=== PATIENT | female | born 1985 | race Caucasian/White ===

== ENCOUNTER 2018-01-11 19:37 | Emergency (ER) | payer OTHER ==
[2018-01-11] MEDS ORDERED: PROMETHAZINE HCL 25 MG/ML INJ IVP ONE (19:49)
[2018-01-11] MEDS ORDERED: NS 1,000 ML IV ONE ×2 (19:49)
--- NOTE | 2018-01-11 19:49 | EDPHY ---
H & P Stated Complaint: N/V, x2 days Time Seen by Provider: 01/11/18 19:46 HPI/ROS: HPI: This is a 32-year-old female who presents with Chief Complaint: Nausea, vomiting x2 days Location: GI Quality: Nausea, vomiting Duration: 2 days Signs and Symptoms: no fever, + nausea, + vomiting, no hematemesis, no blood in stool, no abdominal bloating, no diarrhea, no back pain, no urinary symptoms, no vaginal bleeding/discharge, no indigestion, no chest pain, no shortness of breath Timing: Acute, intermittent episodes Severity: Moderate Context: Patient presents with sudden onset approximately 48 hr ago of nausea and vomiting 10-20 times per day of her stomach contents and bile at this point. Patient reports that the evening before the symptoms started she and her 8 homeless that was bad. Her started to feel nauseous but has not had the severity of symptoms that the patient has. She denies any foreign travel, recent antibiotics use. She reports that she took Zofran with minimal relief of her symptoms. She denies any abdominal pain, pelvic pain. She has no fevers, diarrhea, back pain, urinary symptoms. She has an IUD does not regularly get her menses. Denies marijuana use. Took 12 mg Zofran and Benadryl 50 mg today with minimal relief. Modifying Factors: Zofran and Benadryl with no relief Comment: ROS: A comprehensive 10 system review of systems is otherwise negative aside from elements mentioned in the history of present illness. 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 . Nonsmoker. Family history noncontributory. CONSTITUTIONAL: Nontoxic-appearing adult white female, awake and alert, no obvious distress HEENT: Atraumatic and normocephalic, PERRL, EOMI. Nares patent; no rhinorrhea; no nasal mucosal edema. Tympanic membranes clear. Oropharynx clear, no exudate and moist pink mucosa. Airway patent. No lymphadenopathy. No meningismus. Cardiovascular: Normal S1/S2, regular rate, regular rhythm, without murmur rub or gallop. PULMONARY/CHEST: Symmetrical and nontender. Clear to auscultation bilaterally. Good air movement. No accessory muscle usage. ABDOMEN: Soft, nondistended, nontender, no rebound, no guarding, no peritoneal signs, no masses or organomegaly. No CVAT. EXTREMITIES: 2/2 pulses, strength 5/5, no deformities, no clubbing, no cyanosis or edema. NEUROLOGICAL: no focal neuro deficits. GCS 15. SKIN: Warm and dry, no erythema. no rash. Good capillary refill. Source: Patient Exam Limitations: No limitations - Personal History Current Tetanus/Diphtheria Vaccine: No Current Tetanus Diphtheria and Acellular Pertussis (TDAP): No - Medical/Surgical History Hx Asthma: Yes Hx Chronic Respiratory Disease: No Hx Diabetes: No Hx Cardiac Disease: No Hx Renal Disease: No Hx Cirrhosis: No Hx Alcoholism: No Hx HIV/AIDS: No Hx Splenectomy or Spleen Trauma: No Other PMH: bleeding ovarian cyst sx, hip dysplasia - Social History Smoking Status: Never smoked Constitutional: Initial Vital Signs Temperature (C) 36.7 C 01/11/18 19:39 Heart Rate 78 01/11/18 19:39 Respiratory Rate 20 01/11/18 19:39 Blood Pressure 116/62 01/11/18 19:39 O2 Sat (%) 97 01/11/18 19:39 O2 Delivery Mode Room Air Allergies/Adverse Reactions: No Known Allergies Allergy (Unverified 01/11/18 19:38) Home Medications: Medication Instructions Recorded Promethazine HCl 25 mg PO Q6 PRN #12 tablet 01/11/18 Medical Decision Making ED Course/Re-evaluation: Vital signs reviewed and stable upon arrival. No systemic signs. IV access and laboratory studies ordered Abdomen is soft and nontender. Doubt surgical process. Imaging not indicated. No urinary symptoms and patient politely declined urinalysis which I feel is reasonable. Given 2 L normal saline and IV promethazine 12.5 mg upon arrival 2020: Labs reviewed. No signs of leukocytosis/anemia/platelet dysfunction/TITUS/ elevated LFTs/electrolyte imbalance/pancreatitis/. 2100: Reassessed patient who reports that she feels sleepy but still complains of nausea. IV Reglan given. Polite declines IV Benadryl as she already feels sleepy. I offered her pain medication she politely declined this. I do not believe the ultrasound is warranted for right upper quadrant pain at this time due to normal LFTs. 2199: Reassessed patient who reports she still has mild nausea. IV Benadryl given. 2220: To room by patient who advises that she feels comfortable being discharged home. Prepack for Phenergan and prescription for same given per request. She advises that she has an appointment with her primary care provider tomorrow already scheduled. This patient was seen under the supervision of my secondary supervising physician. I evaluated care for this patient independently. Discussed this patient with Dr. Engel. Differential Diagnosis: Abdominal pain including but not limited to appendicitis, cholecystitis, gastritis and urinary tract infection. - Data Points Laboratory Results: Laboratory Results 01/11/18 20:05 01/11/18 20:05 01/11/18 01/11/18 01/11/18 20:05 20:05 20:05 WBC 4.29 10^3/uL 10^3/uL (3.80-9.50) RBC 4.72 10^6/uL 10^6/uL (4.18-5.33) Hgb 13.3 g/dL g/dL (12.6-16.3) Hct 38.8 % % (38.0-47.0) MCV 82.2 fL fL (81.5-99.8) MCH 28.2 pg pg (27.9-34.1) MCHC 34.3 g/dL g/dL (32.4-36.7) RDW 13.0 % % (11.5-15.2) Plt Count 233 10^3/uL 10^3/uL (150-400) MPV 9.7 fL fL (8.7-11.7) Neut % (Auto) Not Reported Lymph % (Auto) Not Reported [place] % (Auto) Not Reported Eos % (Auto) Not Reported Baso % (Auto) Not Reported Nucleat RBC Rel Count Not Reported Absolute Neuts (auto) Not Reported Absolute Lymphs (auto) Not Reported Absolute Monos (auto) Not Reported Absolute Eos (auto) Not Reported Absolute Basos (auto) Not Reported Absolute Nucleated RBC Not Reported Immature Gran % Not Reported Seg Neutrophils % 83.0 % % Band Neutrophils % 0.0 % % Lymphocytes % 10.0 % % Monocytes % 6.0 % % Eosinophils % 1.0 % % Basophils % 0.0 % % Metamyelocytes % 0.0 % % Myelocytes % 0.0 % % Promyelocytes % 0.0 % % Blast Cells % 0.0 % % Immature Gran # Not Reported Absolute Seg Neuts 3.56 10^3/uL 10^3/uL (1.70-6.50) Absolute Band Neuts 0.00 10^3/uL 10^3/uL (0.00-0.70) Absolute Lymphocytes 0.43 10^3/uL L 10^3/uL (1.00-3.00) Absolute Monocytes 0.26 10^3/uL L 10^3/uL (0.30-0.80) Absolute Eosinophils 0.04 10^3/uL 10^3/uL (0.03-0.40) Absolute Basophils 0.00 10^3/uL L 10^3/uL (0.02-0.10) Absolute Metamyelocyte 0.00 10^3/mL 10^3/mL (0.00-0.00) Absolute Myelocytes 0.00 10^3/mL 10^3/mL (0.00-0.00) Absolute Promyelocytes 0.00 10^3/uL 10^3/uL (0.00-0.00) Absolute Plasma Cells 0.00 10^3/uL 10^3/uL (0.00-0.00) Nucleated RBCs 2.0 /100 WBC H /100 WBC (0-0) Absolute Blast Cells 0.00 10^3/uL 10^3/uL (0.00-0.00) Plasma Cells % 0.0 % % Platelet Estimate TNP Sodium 137 mEq/L mEq/L (135-145) Potassium 3.5 mEq/L mEq/L (3.3-5.0) Chloride 104 mEq/L mEq/L (97-110) Carbon Dioxide 24 mEq/l mEq/l (22-31) Anion Gap 9 mEq/L mEq/L (6-14) BUN 13 mg/dL mg/dL (7-23) Creatinine 0.7 mg/dL mg/dL (0.6-1.0) Estimated GFR > 60 Glucose 112 mg/dL H mg/dL (70-100) Calcium 9.0 mg/dL mg/dL (8.5-10.4) Total Bilirubin 0.5 mg/dL mg/dL (0.1-1.4) Conjugated Bilirubin 0.0 mg/dL mg/dL (0.0-0.5) Unconjugated Bilirubin 0.5 mg/dL mg/dL (0.0-1.1) AST 42 IU/L IU/L (14-46) ALT 33 IU/L IU/L (9-52) Alkaline Phosphatase 52 IU/L IU/L (38-126) Total Protein 6.9 g/dL g/dL (6.3-8.2) Albumin 4.0 g/dL g/dL (3.5-5.0) Lipase 92 IU/L IU/L (23-300) Beta HCG, Qual NEGATIVE Medications Given: Discontinued Medications Diphenhydramine HCl (Benadryl Injection) 25 mg IVP EDNOW ONE Stop: 01/11/18 21:58 Last Admin: 01/11/18 21:58 Dose: 25 mg Sodium Chloride (Ns) 1,000 mls @ 0 mls/hr IV EDNOW ONE; Wide Open PRN Reason: Protocol Stop: 01/11/18 19:50 Last Admin: 01/11/18 20:01 Dose: 1,000 mls Sodium Chloride (Ns) 1,000 mls @ 0 mls/hr IV EDNOW ONE; Wide Open PRN Reason: Protocol Stop: 01/11/18 19:50 Last Admin: 01/11/18 20:01 Dose: 1,000 mls Metoclopramide HCl (Reglan Injection) 10 mg IVP EDNOW ONE Stop: 01/11/18 21:00 Last Admin: 01/11/18 21:16 Dose: 10 mg Morphine Sulfate (Morphine) 4 mg IVP EDNOW ONE Stop: 01/11/18 21:00 Last Admin: 01/11/18 21:17 Dose: Not Given Ondansetron HCl (Zofran) 4 mg IVP EDNOW ONE Stop: 01/11/18 20:58 Last Admin: 01/11/18 21:17 Dose: Not Given Promethazine HCl (Phenergan) 12.5 mg IVP EDNOW ONE Stop: 01/11/18 19:50 Last Admin: 01/11/18 20:01 Dose: 12.5 mg Departure - Departure Disposition: Home, Routine, Self-Care Clinical Impression: Gastroenteritis Condition: Good Instructions: Gastroenteritis (ED), Dehydration (ED) Additional Instructions: Consume a minimum of 8-10 glasses of water or electrolyte fluid replacement drinks that include Gatorade, Powerade, Pedialyte. Eat a bland diet for the next 48 hours and then slowly advance as tolerated. Take Phenergan 1 tab every 4-6 hours as needed for nausea, vomiting. Please keep follow-up appointment with primary care provider tomorrow. Return to the Emergency Room if symptoms do not resolve in the next 48-72 hours , you spike a fever > 102 F, or experience intractable abdominal pain/nausea/ vomiting. Referrals: Marnie Parada MD [Primary Care Provider] - As per Instructions Prescriptions: Promethazine HCl 25 mg PO Q6 PRN #12 tablet PRN Reason: Nausea/Vomiting, Use 2nd
[2018-01-11 20:13] LABS: PLATELET COUNT 233 10^3/uL (150-400)
[2018-01-11] MEDS ORDERED: ONDANSETRON 4 MG/2 ML VIAL IVP ONE (20:57)
[2018-01-11] MEDS ORDERED: METOCLOPRAMIDE 10 MG/2 ML VIAL IVP ONE (20:59)
[2018-01-11] MEDS ORDERED: PROMETHAZINE 25 MG PREPACK #4 BTL TAKEHOME ONE (22:10)
[2018-01-11 22:41] VITALS: BP 109/76
== END 2018-01-11 22:42 | disposition home or self-care (01) ==
DX: K52.9 Noninfective gastroenteritis and colitis, unspecified (principal); E86.0 Dehydration
CPT/HCPCS: 96374; J1200; J2550; J2765